=== PATIENT | female | born 1990 | race Two or more races ===

== ENCOUNTER 2018-10-11 17:50 | Emergency (ER) | payer OTHER ==
[~2018-10-11] VITALS: Ht 160 cm; Wt 81.6 kg
[2018-10-11 18:20] VITALS: BP 142/92
--- NOTE | 2018-10-11 18:22 | NUR ---
ED Nurse Note: pt walked in due to laceration on the right middle and ring finger, pt stated when she is about to fall, she held something and lacerated her finger. bleeding was stopped. pt is complaining of 4/10 pain. not updated to tdap.
[2018-10-11] MEDS ORDERED: Neosporin Oint Ud Pkt TOPIC ONE (18:30)
[2018-10-11] MEDS ORDERED: Tetanus/Diptheria/Pertussis IM ONE (18:30)
--- NOTE | 2018-10-11 18:35 | Emergency Room Report ---
History of Present Illness General Chief Complaint: Laceration Source: Patient Present Illness HPI 28-year-old female with no symptom past medical history here complaining of cuts on both ring and middle finger of the right hand that happened at work today. Patient reports that she was grabbing something unknown as she is started having minimal bleeding after. Denies exposure to foreign body such as glass. Is not up-to-date with her tetanus shot and is requesting to be given one today. No bleeding is noted cuts are very superficial. Patient has full range of motion and no motor or sensory deficits noted rating pain 3 out of 10 upon palpation. Denies tingling and numbness. Denies all other injuries. Has not taken medication for symptom relief. Denies chest pain, shortness of breath , palpitation, and other associated symptoms. Allergies: Coded Allergies: No Known Allergies (Unverified , 10/11/18) Patient History Past Medical History: see triage record Past Surgical History: unable to obtain Pertinent Family History: none Last Menstrual Period: 09/2018 Now: No : 0 Para: 0 Immunizations: other - tdap given today Reviewed Nursing Documentation: PMH: Agreed; PSxH: Agreed Nursing Documentation-PMH Past Medical History: No Stated History Review of Systems All Other Systems: negative except mentioned in HPI Physical Exam Vital Signs Date Time Temp Pulse Resp B/P (MAP) Pulse Ox O2 Delivery O2 Flow Rate FiO2 10/11/18 18:13 98.6 68 18 142/92 (109) 98 Room Air Sp02 EP Interpretation: reviewed, normal General Appearance: no apparent distress, alert, GCS 15, non-toxic Head: normocephalic, atraumatic Eyes: bilateral eye normal inspection, bilateral eye PERRL ENT: normal ENT inspection Neck: full range of motion, supple/symm/no masses Respiratory: chest non-tender, lungs clear, normal breath sounds, speaking full sentences Cardiovascular #1: regular rate, rhythm, no edema Cardiovascular #2: 2+ radial (R), 2+ radial (L) Gastrointestinal: normal bowel sounds, non tender, soft, non-distended, no guarding, no rebound Musculoskeletal: back normal, digits/nails normal, other - Aberrations noted and tips of both ring and middle finger in the right hand Neurologic: alert, oriented x3, responsive, motor strength/tone normal, sensory intact, speech normal Psychiatric: judgement/insight normal, memory normal, mood/affect normal, no suicidal/homicidal ideation Skin: abrasion Lymphatic: no adenopathy Medical Decision Making PA Attestation All my diagnosis and treatment plans were reviewed ad discussed with my supervising physician Dr. Flores Diagnostic Impression: Primary Impression: Abrasion of right middle finger Additional Impression: Abrasion of right ring finger ER Course 28-year-old female with no symptom past medical history here complaining of cuts on both ring and middle finger of the right hand that happened at work today. Patient reports that she was grabbing something unknown as she is started having minimal bleeding after. Denies exposure to foreign body such as glass. Is not up-to-date with her tetanus shot and is requesting to be given one today. No bleeding is noted cuts are very superficial. Patient has full range of motion and no motor or sensory deficits noted rating pain 3 out of 10 upon palpation. Denies tingling and numbness. Denies all other injuries. Has not taken medication for symptom relief. Denies chest pain, shortness of breath , palpitation, and other associated symptoms. Ddx considered but are not limited to: Infected aberration, superficial abrasion noninfected, laceration, cellulitis Vital signs: are WNL, pt. is afebrile H&PE are most consistent with: Noninfected aberration ORders: Neomycin, Tdap, Bactroban ED INTERVENTIONS: Tdap, wound clean and dressed. DISCHARGE: At this time pt. is stable for d/c to home. Will provide printed patient care instructions, and any necessary prescriptions. Care plan and follow up instructions have been discussed with the patient prior to discharge. At this time no imaging is needed as patient does not have open cuts no laceration repair is needed as patient has aberrations. Follow-up with primary care provider if worsening symptoms return to the emergency room Last Vital Signs Date Time Temp Pulse Resp B/P (MAP) Pulse Ox O2 Delivery O2 Flow Rate FiO2 10/11/18 18:20 98.6 68 18 142/92 98 Room Air Disposition: HOME, SELF-CARE Condition: Stable Scripts Mupirocin (MUPIROCIN) 15 Gm Cream..g. 1 APPLIC TOPIC THREE TIMES A DAY, #15 GM Prov: Ector Payan 10/11/18 Ibuprofen* (MOTRIN*) 600 Mg Tablet 600 MG ORAL Q8H PRN for For Pain, #30 TAB 0 Refills Prov: Ector Payan 10/11/18 Patient Instructions: Abrasion, [id number] Ector Payan Oct 11, 2018 18:35
[2018-10-11] MEDS ORDERED: MUPIROCIN15 GM TOPIC (18:36)
[2018-10-11] MEDS ORDERED: IBUPROFEN600 MG ORAL (18:36)
[2018-10-11 18:50] VITALS: BP 142/92
--- NOTE | 2018-10-11 18:50 | NUR ---
ER DISCHARGE NOTE: Patient is cleared to be discharged per ERMD, pt is aox4, on room air, with stable vital signs. pt was given dc and prescription instructions, pt was able to verbalize understanding, pt id band removed without complications. pt is able to ambulate with steady gait. pt took all belongings.
== END 2018-10-11 18:50 | disposition home or self-care (01) ==
LOC: EMR 18:48
DX: S60.412A Abrasion of right middle finger, initial encounter (principal); S60.414A Abrasion of right ring finger, initial encounter; Z23 Encounter for immunization; W45.8XXA Other foreign body or object entering through skin, initial encounter; Y92.511 Restaurant or cafe as the place of occurrence of the external cause; Y99.0 Civilian activity done for income or pay
CPT/HCPCS: 90471; 90715; 99283